=== PATIENT | male | born 1935 | race Caucasian/White ===

== ENCOUNTER → 2017-04-24 | Outpatient (CLI) | payer MEDICARE ==
[2017-04-24 13:24] LABS: CALCIUM 8.7 mg/dL (8.5-10.1); GFR 72.1; MAGNESIUM 2.2 mg/dL (1.8-2.4); POTASSIUM 4.6 mmol/L (3.5-5.1)
== END | disposition home or self-care (01) ==
LOC: LAB 12:30
PROVIDERS: ATTEND Internal Medicine Cardiovascular Disease
DX: I49.3 Ventricular premature depolarization (principal)
CPT/HCPCS: 36415; 80048; 83735

== ENCOUNTER → 2022-01-04 | Outpatient (CLI) | payer MEDICARE ==
--- NOTE | 2022-01-04 13:02 | RAD ---
CT HEAD/BRAIN WO Date: 01/04/2022 11:13 AM Clinical Indication: CHRONIC HEADACHES, N.K.I Comparison: None. Technique: 5 mm axial tomographic images were obtained of the head without contrast. These were view ed on brain and bone windows. One or more of the following dose reduction techniques were utilized: A utomated exposure control (AEC), Adjustment of mA and/or kV according to patient size, Use of iterati ve reconstruction technique such as ASiR, CT scan done according to ALARA and image gently/image [place] ly Findings: Mild generalized cerebral and cerebellar volume loss. Mild nonspecific periventricular hypoattenuatio n, most commonly seen with chronic small vessel ischemic disease. Calcified atherosclerosis of the bi lateral cavernous and paraclinoid internal carotid arteries and intracranial vertebral arteries. No intra- or extra-axial mass or fluid collection. No acute hemorrhage. The ventricles are normal in size, shape, and morphology. The morales-white matter junction is normal. The subarachnoid cisterns are patent. The visualized paranasal sinuses are normal. The visualized portions of the orbits and globes are no rmal. The mastoid air cells are clear. 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 Impression: No acute intracranial process. Mild cerebral volume loss. Mild chronic small vessel ischemic disease. Electronically signed by: Sergio Meredith MD (01/04/2022 12:59 PM) [id number]
== END ==
LOC: CT 10:45
PROVIDERS: ATTEND Family Medicine
DX: I67.82 Cerebral ischemia (principal); G44.209 Tension-type headache, unspecified, not intractable
CPT/HCPCS: 70450

== ENCOUNTER → 2022-01-13 | Outpatient (CLI) | payer MEDICARE ==
[2022-01-13] MEDS: IOHEXOL 350 MG/ML 100 ML VIAL. IV ONE (10:30)
--- NOTE | 2022-01-13 12:42 | RAD ---
EXAM: CTA HEAD AND NECK W/WO CONTRAST DATE: 01/13/2022 10:43 AM INDICATION: HEADACHES TECHNIQUE: CTA angiogram of the head and neck was obtained after IV bolus administration of 75 cc of Isovue-[id number]. The images were sent to workstation and multiplanar reconstructions were obtained. Multi planar reconstruction images to include MIP and 3-D reconstruction images are submitted. One or more of the following dose reduction techniques were utilized: Automated exposure control (AEC ), Adjustment of mA and/or kV according to patient size, Use of iterative reconstruction technique varela ch as ASiR, CT scan done according to ALARA and image gently/image wisely COMPARISON: Noncontrast CT head 01/04/2022. FINDINGS: CTA Head: The visualized distal internal carotid arteries, anterior and middle cerebral arteries are patent and normal caliber. 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 The di stal left vertebral artery, basilar artery, and posterior cerebral arteries are patent and normal eliecer iber. No aneurysm or arteriovenous malformation is seen. CTA Neck: Right carotid: The right common carotid artery is patent and normal caliber. The carotid bifurcation is normal. No stenosis of the right internal carotid artery per NASCET criteria. The right external c arotid artery is patent. Left carotid: The left common carotid artery is patent and normal caliber. The carotid bifurcation is normal. No stenosis of the left internal carotid artery per NASCET criteria. The left external carot id artery is patent. Right vertebral: The right vertebral artery is patent and markedly hypoplastic. Left vertebral: The left vertebral artery is patent and normal caliber. The visualized portions of the aortic arch are normal. The origins of the brachiocephalic and subclav yesika arteries are normal. No cervical lymphadenopathy. The thyroid gland is normal. The parotid and submandibular glands are no rmal. The visualized aerodigestive tract is unremarkable. The cervical spine is normal. The visualized portions of the lungs are clear. IMPRESSION: 1. No aneurysm. No intracranial stenosis or occlusion. 2. No stenosis of the cervical internal carotid arteries. 3. Diffusely hypoplastic right vertebral artery. PQRS Compliance Statement - Stenosis calculations for CT, MR and conventional angiography are based u pebbles measurement of the distal ICA diameter in accordance with the NASCET methodology. Electronically signed by: Sergio Meredith MD (01/13/2022 12:40 PM) [id number]
== END ==
LOC: CT 10:08
PROVIDERS: ATTEND Family Medicine
DX: I67.2 Cerebral atherosclerosis (principal)
CPT/HCPCS: 70496; 70498; Q9967